=== PATIENT | male | born 1975 | race Caucasian/White ===

== ENCOUNTER 2020-03-12 10:30 | Emergency (ER) | payer BC ==
[~2020-03-12] VITALS: Ht 170.2 cm; Wt 65.5 kg
[2020-03-12 10:44] VITALS: Ht 170.2 cm; Wt 65.5 kg
[2020-03-12] MEDS ORDERED: VIBRAMYCIN 100100 MG PO (10:52)
[2020-03-12 11:41] VITALS: BP 113/69
== END 2020-03-12 11:44 | disposition home or self-care (01) ==
LOC: D.ER 10:30
DX: S40.861A Insect bite (nonvenomous) of right upper arm, initial encounter (principal); W57.XXXA Bitten or stung by nonvenomous insect and other nonvenomous arthropods, initial encounter; Y93.9 Activity, unspecified; Y92.9 Unspecified place or not applicable